=== PATIENT | female | born 1960 | race African-American/Black ===

== ENCOUNTER 2021-09-03 15:41 | Emergency (ER) | payer OTHER ==
[~2021-09-03] VITALS: Ht 167.6 cm; Wt 121.1 kg
[2021-09-03] MEDS ORDERED: ULTRAM 50MG50 MG PO (18:23)
[2021-09-03] MEDS ORDERED: MELOXICAM7.5 MG PO (18:25)
[2021-09-03 18:38] VITALS: BP 175/102
== END 2021-09-03 18:40 | disposition home or self-care (01) ==
LOC: FSED 16:09
DX: M25.562 Pain in left knee (principal); M17.12 Unilateral primary osteoarthritis, left knee; I10 Essential (primary) hypertension; E11.9 Type 2 diabetes mellitus without complications
CPT/HCPCS: 99283